=== PATIENT | female | born 1990 | race Caucasian/White ===

== ENCOUNTER 2024-12-20 23:42 | Emergency (ER) | payer BC ==
[~2024-12-20] VITALS: Ht 172.7 cm; Wt 98.9 kg
[2024-12-20 23:49] VITALS: O2SAT 99
[2024-12-21 00:56] LABS: BASOPHILS % 0.1 % (0.0-2.0); EOSINOPHILS % 0.9 % (0.0-5.0); HEMATOCRIT. 41.1 % (36.0-48.0); HEMOGLOBIN. 13.9 g/dL (12.0-16.0); LYMPHOCYTES % 11.1 % (20.0-50.0); MEAN CORPUSCULAR HEMOGLOBIN 30.3 pg (28.0-32.0); MEAN CORPUSCULAR HGB CONC 33.8 g/dL (31.0-37.0); MEAN CORPUSCULAR VOLUME 89.7 fL (81.0-99.0); MEAN PLATELET VOLUME 8.6 fl (7.4-10.4); NEUTROPHILS % 84.9 % (40.0-76.0); PLATELET 336 x1000/uL (130-400); RED BLOOD CELL COUNT 4.58 mill/uL (4.2-5.4); WHITE BLOOD COUNT 10.5 x1000/uL (4.5-11.0)
[2024-12-21] MEDS: ONDANSETRON HCL 4MG TABLET PO ONE (01:02)
[2024-12-21] MEDS: MAGNESIUM/ALUMINUM HYDROXIDE/SIMETHICONE 30ML UDC PO ONE (01:02)
[2024-12-21 01:07] LABS: CARBON DIOXIDE 26 mEq/L (21-32); CHLORIDE 107 mEq/L (98-107); POTASSIUM 3.6 mEq/L (3.5-5.1); SODIUM 140 mEq/L (136-145)
[2024-12-21 01:08] LABS: CALCIUM 9.1 mg/dL (8.7-10.4)
[2024-12-21 01:12] LABS: CREATININE 0.8 mg/dL (0.6-1.0)
[2024-12-21 01:13] LABS: GLUCOSE 139 mg/dL (70-105); UREA NITROGEN BLOOD 10 mg/dL (9-23)
[2024-12-21 01:14] LABS: ALANINE AMINOTRANSFERASE 19 IU/L (10-49); ALBUMIN 4.3 g/dL (3.2-4.8); ASPARTATE AMINOTRANSFERASE 15 IU/L (<34)
[2024-12-21 01:15] LABS: BILIRUBIN DIRECT 0.1 mg/dL (<=3.0); BILIRUBIN TOTAL 0.5 mg/dL (0.1-1.0); PROTEIN TOTAL 6.5 g/dL (6.0-8.3)
[2024-12-21 02:43] LABS: HCG SCREEN NEGATIVE
[2024-12-21] MEDS ORDERED: MAG355OR21 MT (03:00)
[2024-12-21] MEDS ORDERED: ONDA4TAB50 MT (03:01)
[2024-12-21 03:16] VITALS: BP 127/81; PULSE 70; RESP 20; TEMP 36.8; O2SAT 99
[2024-12-21 04:16] LABS: CLARITY URINE CLEAR (CLEAR); COLOR URINE YELLOW (YELLOW); GLUCOSE URINE NEGATIVE (NEGATIVE); KETONES URINE NEGATIVE (NEGATIVE); LEUKOCYTE ESTERASE URINE NEGATIVE (NEGATIVE); NITRITE URINE NEGATIVE (NEGATIVE); OCCULT BLOOD URINE 2+ (NEGATIVE); PROTEIN URINE TRACE (NEGATIVE); SPECIFIC GRAVITY URINE 1.026 (1.005-1.030)
[2024-12-21 04:51] LABS: SQUAMOUS EPITHELIAL CELL URINE FEW /lpf (RARE/1+)
[2024-12-21 04:54] LABS: RBC URINE 15-25 /hpf (0-2); WBC URINE 0-2 /hpf (0-2)
[2024-12-21 04:56] LABS: BACTERIA URINE NONE SEEN
== END 2024-12-21 03:18 | disposition home or self-care (01) ==
LOC: ER 12-21 00:14
DX: K21.9 Gastro-esophageal reflux disease without esophagitis (principal); Z79.899 Other long term (current) drug therapy
CPT/HCPCS: 99283; 80076; 80048; 81003; 84703; 83690; 85025; 36415; Q0162